=== PATIENT | male | born 1965 | race Caucasian/White ===

== ENCOUNTER 2018-08-17 13:19 | Outpatient (CLI) | payer BC, SELFPAY ==
--- NOTE | 2018-08-17 11:44 | DI.RAD_ITS ---
SYMPTOMS/DIAGNOSIS: SHORTNESS OF BREATH, R06.02 PA AND LATERAL CHEST: There are no prior comparison exams. The heart size is within normal limits. The aorta is normal in diameter. The lungs appear clear. No infiltrate, effusion or pulmonary edema is seen. IMPRESSION: Negative chest x-ray.
== END 2018-08-17 13:39 ==
PROVIDERS: PCP Nurse Practitioner; Visit Provider Nurse Practitioner
DX: R06.02 Shortness of breath (principal)
CPT/HCPCS: 71046

== ENCOUNTER 2018-09-03 12:28 | Outpatient (REF) | payer BC, SELFPAY ==
[2018-09-03 18:50] LABS: HCT 42.1 % (40.0-50.0); HGB 13.3 g/dL (13.5-17.5); Mean Corp. HGB Concentration 31.6 g/dL (32.0-36.0); Mean Corpuscular Hemoglobin 28.1 pg (27.0-33.0); Mean Corpuscular Volume 88.8 fL (80-95); Mean Platelet Volume 10.1 fL (8.0-11.0); Platelet Count 363 x1000/uL (130-400); RBC 4.74 m/cumm (4.50-6.00); RBC Distribution Width 14.6 % (11.8-14.1); White Blood Cell Count 7.31 k/cumm (4.4-10.8)
[2018-09-03 19:09] LABS: ALT 45 U/L (12-78); AST 27 U/L (15-37); Albumin 3.5 g/dL (3.4-5.0); Alkaline Phosphatase 77 U/L (46-116); Anion Gap 7.7 mmol/L (3-11); BUN 13 mg/dL (7-18); Bilirubin, Total 0.3 mg/dL (0.2-1.0); CO2 27.3 mmol/L (21.0-32.0); CREATININE 0.79 mg/dL (0.70-1.30); Calcium 8.8 mg/dL (8.5-10.1); Chloride 105 mmol/L (98-107); Glucose 101 mg/dL (70-100); Potassium 4.7 mmol/L (3.5-5.1); Sodium 140 mmol/L (136-145); TSH (W/Ref FT4) 2.18 uIU/mL (0.358-3.74); Total Protein 7.4 g/dL (6.4-8.2)
== END 2018-09-03 12:48 ==
LOC: NCHCN 12:28
PROVIDERS: PCP Nurse Practitioner; Visit Provider Nurse Practitioner
DX: R53.83 Other fatigue (principal)
CPT/HCPCS: 80053; 85027; 84443

== ENCOUNTER 2018-09-20 10:28 | Emergency (ER) | payer BC, SELFPAY ==
--- NOTE | 2018-09-20 11:00 | NUR.NOTE ---
at 0945 pt caught 3rd and 4th finger in a wiliam wile working outside finger past the distal going on the forth digit is missing and tip of third digit is crushed
[2018-09-20 11:02] VITALS: BP 124/85; PULSE 94; RESP 16; TEMP 36.6; O2SAT 96
--- NOTE | 2018-09-20 11:09 | ED.GENADUL_ITS ---
Discharge Plan Disposition Patient Disposition: [facility] Condition: Stable Discharge Details Chief Complaint: Laceration Clinical Impression: Finger fracture, right, Fingertip amputation, Finger laceration Primary Care Provider: Ave [facility] ED Provider: Sapphire Baltazar Home Meds and New Rx's Prescriptions: No Action No Known Home Meds RF: 0 Discharge Instructions Instructions: Finger Fracture (ED), Finger Laceration (ED) Additional Instructions: Go directly to [facility] emergency department for evaluation there by the emergency physician and orthopedic hand surgeon. Discharge Data Discharge Physician: Sapphire Baltazar Medical Decision Making 53-year-old male who presents with crush injury and laceration to right distal third fingertip and amputation to distal right fourth fingertip sustained when caught in a wiliam prior to arrival. Patient is right-handed. There is a crush injury and laceration extending through the nail of the distal right third finger extending up past the DIP joint on medial aspect. There is a distal amputation with nail avulsion of the right fourth fingertip distal to the DIP joint. Remainder fingers appear within normal limits. There are scattered abrasions and skin tears. He has grossly intact motor and sensory function of the third and fourth fingers. Last tetanus July 2008. Will give a Boostrix, dose of oxycodone, and send for right hand x-ray. There is no orthopedic consult available today. Will call [facility]. 1300 --x-rays note compound fracture of the terminal tuft of the third finger distal phalanx with soft tissue laceration as well as compound fracture/partial limitation of the terminal tuft of the fourth finger distal phalanx and fingertip soft tissue partial amputation. 2 g of Ancef ordered. Digital block performed on third and fourth finger prior to soaking and irrigation of fingers. 1315 --discussed with [facility] hand -accepts patient for transfer to the ED for evaluation and likely repair. Patient is otherwise hemodynamically stable and appropriate to have his drive himself to the [facility] ED. Patient and are agreeable with this plan and would rather drive there themselves. Wounds dressed with wet-to-dry dressings. Medical Records Medical records reviewed: Yes I reviewed the patient's medical records. Imaging Data Radiologic Study: Radiologist's impression: XR Right Hand Complete, 3 or more Views EXAM DATE/TIME: 09/20/2018 11:15 AM FINDINGS: Bones/joints: There is a comminuted, compound fracture of the terminal tuft of the third finger, distal phalanx. There is a compound fracture and partial amputation of the terminal tuft of the fourth finger distal phalanx. No dislocation. Soft tissues: There is laceration/crush injury of the soft tissues of the distal aspect of the third finger. There is partial amputation of the soft tissues of the tip of the fourth finger. IMPRESSION: 1. Compound fracture of the terminal tuft of the third finger distal phalanx with associated soft tissue laceration. 2. Compound fracture/partial amputation of the terminal tuft of the fourth finger distal phalanx and fingertip soft tissue partial amputation. HPI General Mode of arrival: ambulatory . Date/Time Provider Initiated Documentation: 09/20/18 11:08 . Limitations to Documentation: no limitations . Information obtained by: patient . HPI Narrative: Patient is a 53-year-old male who presents with crush injury and amputation to fingers after fingers caught in a wiliam prior to arrival. Patient states he works at a [employer] and states at around 10 AM this morning his right hand got caught in a wiliam and caused a crush injury to his distal right third fingertip and amputation to his distal right fourth fingertip. Unknown tetanus status. He has not taken anything for pain. Related Data Home Medications Medication Instructions Recorded Confirmed Unknown [No Known Home Meds] 09/20/18 09/20/18 Allergies Allergy/AdvReac Type Severity Reaction Status Date / Time No Known Allergies Allergy Unverified 09/20/18 11:04 General Stated Complaint: Laceration DAVIDE: 3 Review of Systems Review of Systems All systems reviewed & are unremarkable except as noted in HPI and below [facility] Medical History No significant past medical history (Acute) Surgical History No significant past surgical history (Acute) Social History Smoking/Tobacco Use Status: Never Alcohol Intake: never Drug use: Never Substance use type: does not use Do you feel safe at home: Yes Do you feel safe in your relationship?: Yes Exam Const General: cooperative, healthy appearing and no acute distress HENMT Head: normal to inspection Mouth: oral mucosae normal Eyes General: appearance normal, both eyes and all related structures Neck Neck: normal visual inspection Resp Effort & Inspection: normal respiratory effort and able to speak in complete sentences Cardio Rate: regular rate Skin General skin exam: no rashes or lesions noted Neuro General: alert, awake and oriented x3 Motor: muscle tone normal throughout and strength 5/5 throughout Sensory Exam: no sensory deficits noted Extrem Other: Crush injury/laceration noted to distal right third fingertip extending through the nailbed and medial aspect of distal finger. Amputation of tip of right fourth finger with nail avulsion distal to DIP joint. Scattered abrasions and skin tears. Psych Appearance: grossly normal Affect: normal affect Course Vital Signs Temperature 97.9 F 09/20/18 11:02 Pulse 94 H 09/20/18 11:02 Respiratory Rate 16 09/20/18 11:02 Blood Pressure 124/85 09/20/18 11:02 Pulse Oximetry 96 09/20/18 11:02 Temperature 97.9 F 09/20/18 11:02 Temperature Source Skin 09/20/18 11:02 Pulse 94 H 09/20/18 11:02 Respiratory Rate 16 09/20/18 11:02 Respiratory Effort 09/20/18 11:05 Blood Pressure 124/85 09/20/18 11:02 Blood Pressure Position Sitting 09/20/18 11:02 Pulse Oximetry 96 09/20/18 11:02 Oxygen Delivery Method Room Air 09/20/18 11:02 Oxygen Flow Rate 0 09/20/18 11:02 Pain Level 9 09/20/18 11:02
--- NOTE | 2018-09-20 11:14 | DI.RAD_ITS ---
SYMPTOM/DIAGNOSIS: CRUSH INJURY, AMPUTATION RIGHT HAND: Four views. Comparison is made with 05/29/10. There is a comminuted fracture involving the terminal tuft of the right middle finger with mild displacement of the fracture. There is an amputation of the soft tissues of the distal aspect of the right middle finger. There is a comminuted fracture involving the terminal tuft of the distal phalanx of the right finger finger. There is moderate displacement of the fracture fragments noted. There is an amputation of the soft tissues of the distal aspect of the right fourth finger. No radiopaque foreign bodies are seen. No other fracture or dislocation is seen. IMPRESSION: Comminuted displaced fractures involving the terminal edouard of the middle and ring fingers as described above.
[2018-09-20] MEDS: oxyCODONE 5 MG TAB PO ×2 (11:38→14:06)
--- NOTE | 2018-09-20 12:08 | DI.VRAD_ITS ---
EXAM: XR Right Hand Complete, 3 or more Views EXAM DATE/TIME: 09/20/2018 11:15 AM CLINICAL HISTORY: 53 years old, male; Signs and symptoms; Other: Crush injury 3rd fingertip; [id number] fingertip TECHNIQUE: Imaging protocol: XR Right hand 3 or more views. COMPARISON: No relevant prior studies available. FINDINGS: Bones/joints: There is a comminuted, compound fracture of the terminal tuft of the third finger, distal phalanx. There is a compound fracture and partial amputation of the terminal tuft of the fourth finger distal phalanx. No dislocation. Soft tissues: There is laceration/crush injury of the soft tissues of the distal aspect of the third finger. There is partial amputation of the soft tissues of the tip of the fourth finger. IMPRESSION: 1. Compound fracture of the terminal tuft of the third finger distal phalanx with associated soft tissue laceration. 2. Compound fracture/partial amputation of the terminal tuft of the fourth finger distal phalanx and fingertip soft tissue partial amputation. Dictated and Authenticated by: Theodore Arnold MD. Ordering:FITO Leary MD
[2018-09-20] MEDS: ceFAZolin 2,000 MG in Normal Saline 100 ML 200 MG IVPB (13:22)
--- NOTE | 2018-09-20 13:53 | NUR.NOTE ---
wounds flushed 1L HCG mixed with NS land proximal to injury also cleaned. bacitracin, and nonstick steral dressing applied to site.
[2018-09-20 14:02] VITALS: BP 130/95; PULSE 65; RESP 16; TEMP 37.2; O2SAT 96
== END 2018-09-20 14:09 | disposition short-term general hospital (02) ==
PROVIDERS: Emergency Provider Physician Assistant; PCP Nurse Practitioner
DX: S67.192A Crushing injury of right middle finger, initial encounter (principal); S67.194A Crushing injury of right ring finger, initial encounter; S62.634B Displaced fracture of distal phalanx of right ring finger, initial encounter for open fracture; S62.632B Displaced fracture of distal phalanx of right middle finger, initial encounter for open fracture; W23.0XXA Caught, crushed, jammed, or pinched between moving objects, initial encounter
CPT/HCPCS: 90471; 96365; 99284; 73130; J0690

== ENCOUNTER 2019-05-06 03:31 | Outpatient (CLI) | payer BC, SELFPAY ==
[2019-05-06] MEDS: Inhaler, Assist Device 1 EACH MC (08:50)
[2019-05-06] MEDS: Albuterol HFA 18 GM 200 PUFF INH IH (08:50)
--- NOTE | 2019-05-06 09:30 | PFT_ITS ---
PULMONARY FUNCTION TEST REPORT DATE OF SERVICE: May 06, 2019 REQUESTING PROVIDER: [facility] N.P. Spirometry shows mild obstructive airways disease with no significant bronchodilator response. Lung volumes show no evidence of restriction. Diffusion capacity elevated. Airways resistance normal. IMPRESSION: Mild obstructive airways disease with no significant bronchodilator response. This is associated with elevated airways resistance. This constellation of findings can be seen in asthma. Clinical correlation recommended. Magali
== END 2019-05-06 03:51 ==
PROVIDERS: PCP Nurse Practitioner; Visit Provider Nurse Practitioner
DX: J45.909 Unspecified asthma, uncomplicated (principal); R07.89 Other chest pain; R06.09 Other forms of dyspnea
CPT/HCPCS: 94060; 94150; 94726; 94729

== ENCOUNTER 2019-12-07 13:09 | Outpatient (REF) | payer BC, SELFPAY ==
[2019-12-07 16:31] LABS: ALT 27 U/L (16-63); AST 24 U/L (15-37); Albumin 3.7 g/dL (3.4-5.0); Alkaline Phosphatase 73 U/L (46-116); Anion Gap 8.1 mmol/L (3-11); BUN 11 mg/dL (7-18); Bilirubin, Total 0.6 mg/dL (0.2-1.0); CO2 27.9 mmol/L (21.0-32.0); CREATININE 0.84 mg/dL (0.70-1.30); Calcium 9.2 mg/dL (8.5-10.1); Calculated LDL 117 mg/dL (<100); Chloride 106 mmol/L (98-107); Cholesterol 177 mg/dL (<200); Glucose 99 mg/dL (74-106); HDL Cholesterol 35 mg/dL (40-60); Potassium 4.5 mmol/L (3.5-5.1); Sodium 142 mmol/L (136-145); Total Protein 7.4 g/dL (6.4-8.2); Triglyceride 125 mg/dL (<150)
== END 2019-12-07 13:29 ==
LOC: NCHCN 13:09
PROVIDERS: PCP Nurse Practitioner; Visit Provider Nurse Practitioner
DX: R73.03 Prediabetes (principal); Z68.35 Body mass index [BMI] 35.0-35.9, adult
CPT/HCPCS: 80053; 80061

== ENCOUNTER 2020-02-28 08:50 | Outpatient (REF) | payer BC, SELFPAY ==
[2020-02-28 18:58] LABS: HCT 40.9 % (40.0-50.0); HGB 13.5 g/dL (13.5-17.5); MCH 29.1 pg (27.0-33.0); MCV 88.1 fL (80-95); MPV 10.8 fL (8.0-11.0); Platelet Count 294 10^3/uL (130-400); RBC 4.64 10^6/uL (4.36-5.78); RDW 13.5 % (11.8-14.1); WBC 7.51 10^3/uL (4.4-10.8)
[2020-02-28 19:27] LABS: Hemoglobin A1C 5.5 % (<5.7)
[2020-02-28 19:47] LABS: Vitamin B12 299 pg/mL (193-986)
[2020-02-28 19:50] LABS: Vitamin D 25 Total 24.9 ng/ml (30-100)
== END 2020-02-28 09:10 ==
LOC: NCHCN 08:50
PROVIDERS: PCP Nurse Practitioner; Visit Provider Nurse Practitioner
DX: R53.83 Other fatigue (principal); R73.03 Prediabetes; R53.81 Other malaise
CPT/HCPCS: 82306; 85027; 82607; 83036; 84443

== ENCOUNTER 2020-12-11 11:37 | Outpatient (REF) | payer BC, SELFPAY ==
[2020-12-11 14:49] LABS: Hemoglobin A1C 5.9 % (<5.7)
[2020-12-11 14:57] LABS: ALT 23 U/L (16-63); AST 17 U/L (15-37); Albumin 3.5 g/dL (3.4-5.0); Alkaline Phosphatase 67 U/L (46-116); Anion Gap 10.4 mmol/L (3-11); BUN 14 mg/dL (7-18); Bilirubin, Total 0.6 mg/dL (0.2-1.0); CO2 26.6 mmol/L (21.0-32.0); CREATININE 0.7 mg/dL (0.70-1.30); Calcium 8.7 mg/dL (8.5-10.1); Calculated LDL 134 mg/dL (<100); Chloride 106 mmol/L (98-107); Cholesterol 201 mg/dL (<200); Glucose 91 mg/dL (74-106); HDL Cholesterol 39 mg/dL (40-60); Potassium 4.2 mmol/L (3.5-5.1); Sodium 143 mmol/L (136-145); Total Protein 7.2 g/dL (6.4-8.2); Triglyceride 143 mg/dL (<150)
[2020-12-11 22:20] LABS: PSA, Screening 0.8 ng/mL (0.0-3.5)
== END 2020-12-11 11:38 | disposition home or self-care (01) ==
LOC: NCHCN 11:37
PROVIDERS: PCP Nurse Practitioner; Visit Provider Nurse Practitioner
DX: Z13.220 Encounter for screening for lipoid disorders (principal); R03.0 Elevated blood-pressure reading, without diagnosis of hypertension; R73.03 Prediabetes
CPT/HCPCS: 80053; 80061; 84153; 83036

== ENCOUNTER 2021-11-20 16:17 | Outpatient (REF) | payer BC, SELFPAY ==
[2021-11-20 15:00] LABS: Hemoglobin A1C 5.8 % (<5.7)
[2021-11-20 15:07] LABS: Anion Gap 9.6 mmol/L (3-11); BUN 10 mg/dL (7-18); CO2 26.4 mmol/L (21.0-32.0); CREATININE 0.8 mg/dL (0.70-1.30); Calcium 8.4 mg/dL (8.5-10.1); Calculated LDL 132 mg/dL (<100); Chloride 105 mmol/L (98-107); Cholesterol 192 mg/dL (<200); Glucose 94 mg/dL (74-106); HDL Cholesterol 38 mg/dL (40-60); Potassium 4.3 mmol/L (3.5-5.1); Sodium 141 mmol/L (136-145); Triglyceride 111 mg/dL (<150); Vitamin B12 374 pg/mL (193-986)
== END 2021-11-20 16:18 | disposition home or self-care (01) ==
LOC: NCHCN 16:17
PROVIDERS: PCP Nurse Practitioner; Visit Provider Internal Medicine
DX: Z00.00 Encounter for general adult medical examination without abnormal findings (principal); R73.03 Prediabetes; R03.0 Elevated blood-pressure reading, without diagnosis of hypertension; F43.9 Reaction to severe stress, unspecified; E66.9 Obesity, unspecified; J45.20 Mild intermittent asthma, uncomplicated
CPT/HCPCS: 80048; 80061; 82607; 83036

== ENCOUNTER 2022-08-13 12:50 | Outpatient (REF) | payer BC, SELFPAY ==
[2022-08-13 15:06] LABS: Abs Immature Grans 0.02 10^3/uL (0.0-0.06); Absolute Basophil Count 0.02 10^3/uL (0.0-0.2); Absolute Eosinophil Count 0.12 10^3/uL (0.0-0.7); Absolute Lymphocyte Count 2.04 10^3/uL (1.2-3.4); Absolute Monocyte Count 0.38 10^3/uL (0.1-0.8); Absolute Neutrophil Count 4.97 10^3/uL (1.2-6.7); Basophils % 0.3; Eosinophils % 1.6; HCT 43.1 % (40.0-50.0); HGB 14.3 g/dL (13.5-17.5); Immature Grans % 0.3; MCH 28.8 pg (27.0-33.0); MCHC 33.2 % (32.0-36.0); MCV 87 fL (80-95); MPV 10.1 fL (8.0-11.0); Neutrophils % 65.8; Platelet Count 343 10^3/uL (130-400); RBC 4.96 10^6/uL (4.36-5.78); RDW 13.2 % (11.8-14.1); RDW-SD 42.2 fL; WBC 7.55 10^3/uL (4.4-10.8)
[2022-08-13 15:34] LABS: ALT 40 U/L (16-63); AST 29 U/L (15-37); Albumin 3.9 g/dL (3.4-5.0); Alkaline Phosphatase 73 U/L (46-116); Anion Gap 9.7 mmol/L (3-11); BUN 11 mg/dL (7-18); Bilirubin, Total 0.7 mg/dL (0.2-1.0); CO2 27.3 mmol/L (21.0-32.0); CREATININE 0.8 mg/dL (0.70-1.30); Chloride 105 mmol/L (98-107); Estimated GFR 103.22 (mL/min/1.73m2); Glucose 99 mg/dL (74-106); Potassium 4.3 mmol/L (3.5-5.1); Sodium 142 mmol/L (136-145); Total Protein 7.3 g/dL (6.4-8.2)
[2022-08-13 15:41] LABS: Hemoglobin A1C 5.9 % (<5.7)
[2022-08-14 18:19] LABS: PSA, Screening 0.7 ng/mL (<=3.5)
== END 2022-08-13 12:51 | disposition home or self-care (01) ==
LOC: NCHCN 12:50
PROVIDERS: PCP Nurse Practitioner; Visit Provider Internal Medicine
DX: I10 Essential (primary) hypertension (principal); R73.03 Prediabetes; L50.8 Other urticaria; M53.3 Sacrococcygeal disorders, not elsewhere classified; Z12.5 Encounter for screening for malignant neoplasm of prostate
CPT/HCPCS: 80053; 84153; 83036; 85025

== ENCOUNTER 2022-08-15 01:33 | Outpatient (CLI) | payer BC, SELFPAY ==
--- NOTE | 2022-08-15 | DI.RAD_ITS ---
Exam(s) XR COCCYX XR PELVIS AP EXAM: XR PELVIS AP and XR coccyx CLINICAL HISTORY: PAIN, R52. TECHNIQUE: 2D digital imaging was performed.Three images were obtained. COMPARISON: CR XR COCCYX from 08/15/2022 FINDINGS: BONES: No acute fracture is present. No bony destructive lesion is seen. JOINTS: No dislocation present. No joint space narrowing is present. Mild degenerative changes are se en in the lower lumbar spine. SOFT TISSUE: Normal. IMPRESSION: 1. Unremarkable radiographs of the pelvis and coccyx. 2. Mild degenerative changes in the lower lumbar spine. DATA REPOSITORY: RADIATION DOSE DELIVERED:
== END 2022-08-15 01:53 ==
PROVIDERS: PCP Nurse Practitioner; Visit Provider Internal Medicine
DX: M53.3 Sacrococcygeal disorders, not elsewhere classified (principal); M47.816 Spondylosis without myelopathy or radiculopathy, lumbar region
CPT/HCPCS: 72170; 72220

== ENCOUNTER 2022-09-09 10:03 | Outpatient (REF) | payer BC, SELFPAY ==
[2022-09-09 15:26] LABS: Anion Gap 8.6 mmol/L (3-11); BUN 9 mg/dL (7-18); CO2 27.4 mmol/L (21.0-32.0); CREATININE 0.8 mg/dL (0.70-1.30); Calcium 8.8 mg/dL (8.5-10.1); Chloride 104 mmol/L (98-107); Estimated GFR 103.22 (mL/min/1.73m2); Glucose 105 mg/dL (74-106); Potassium 4.2 mmol/L (3.5-5.1); Sodium 140 mmol/L (136-145)
== END 2022-09-09 10:04 | disposition home or self-care (01) ==
LOC: NCHCN 10:03
PROVIDERS: PCP Nurse Practitioner; Visit Provider Internal Medicine
DX: I10 Essential (primary) hypertension (principal); F41.8 Other specified anxiety disorders; G47.8 Other sleep disorders
CPT/HCPCS: 80048

== ENCOUNTER 2022-09-27 21:01 | Emergency (ER) | payer BC, SELFPAY ==
[2022-09-27 21:07] VITALS: BP 136/83; PULSE 73; RESP 18; TEMP 36.7; O2SAT 97
--- NOTE | 2022-09-27 21:30 | DI.RAD_ITS ---
Exam(s) XR RIBS RT PA CHEST 3V EXAM: XR RIBS RT PA CHEST 3V CLINICAL HISTORY: fall, mid-lower R lateral rib pain. TECHNIQUE: 2D digital imaging was performed. COMPARISON: CR XR CHEST 2V PA LATERAL from 08/17/2018 FINDINGS: Total five views: Right ribs-three views: On 1 image there is a nondisplaced fracture line in the posterolateral aspect of the 11th rib. Not evident on the other images. No other fractures identified. Chest-two views: Heart size normal mediastinum is not widened. No infiltrates nor pleural effusions. No pneumothorax. No lung contusion. IMPRESSION: Possible right 11th rib fracture. No lung findings. No pneumothorax. DATA REPOSITORY: RADIATION DOSE DELIVERED:
--- NOTE | 2022-09-27 21:37 | ED.GENADUL_ITS ---
Discharge Plan Disposition Patient Disposition: Home Condition: Fair Discharge Details Clinical Impression: Contusion of thoracic wall Primary Care Provider: Clarence Kay ED Provider: Soniya Razo Home Meds and New Rx's Prescriptions: No Action No Known Home Meds Discharge Instructions Instructions: Contusion in Adults (ED) Additional Instructions: Tylenol 650 mg every 4 hours and or ibuprofen 600 mg every 6 hours as needed for pain. Ice for the next 48 hours and then you may change to heat. Avoid lifting of any kind the next 7 to 10 days. Return to ED for severe difficulty breathing, fever of 100.4 or above, any other concerns. Medical Decision Making Extensive discussion with the patient and his regarding bruising versus rib fracture. Patient has no evidence of a fracture, pneumothorax, kidney or liver injury. He does not feel like he needs anything stronger than Tylenol 650 mg every 4 hours and/or ibuprofen 600 mg every 6 hours. We did discuss ice for the next 48 hours and then changing over to heat. HPI General Date/Time Provider Initiated Documentation: 09/27/22 21:37 . HPI Narrative: This 57-year-old male patient presents with a chief complaint of right posterior thorax pain after a fall yesterday. Patient states that he was walking down a ramp carrying some boxes when he tripped and fell. Landed on a 4 x 4 beam. He has been taking Tylenol and ibuprofen 400 mg as needed for pain. States he felt pretty well today and went to work. After he got out of work he went to the [employer] and started lifting things which really exacerbated the back pain. It hurts more when he takes of breath or coughs. It seems little bit better now. He has no chest pain or shortness of breath. There is no flank pain or hematuria. He has no abdominal pain. Related Data Home Medications Medication Instructions Recorded Confirmed Unknown [No Known Home Meds] 09/20/18 09/20/18 Allergies Allergy/AdvReac Type Severity Reaction Status Date / Time No Known Allergies Allergy Unverified 09/20/18 11:04 General Stated Complaint: Chest/Rib DAVIDE: 4 Review of Systems Constitutional Constitutional: Denies chills, Denies fever(s), Denies headache(s) and Denies weakness Eyes Eyes: Denies diplopia and Reports other (no redness) ENT Ears, Nose, Mouth, and Throat: Denies otalgia, Denies headache(s), Denies nasal congestion, Denies nasal discharge, Denies neck pain and Denies sore throat Cardiovascular Cardiovascular: Denies chest pain, Denies palpitations and Denies dyspnea Respiratory Respiratory: Denies cough and Denies dyspnea Gastrointestinal Gastrointestinal: Denies abdominal pain, Denies diarrhea, Denies nausea and Denies vomiting Genitourinary Genitourinary: Denies difficulty urinating and Denies dysuria Musculoskeletal Musculoskeletal: Denies myalgias, Denies muscle weakness, Denies neck pain, Denies numbness and Reports other (edema) Integumentary/Breasts Skin/Breast: Denies change in pigmentation and Denies rash Neurologic Neurologic: Denies headache(s), Denies numbness and Denies weakness Endocrine Endocrine: Denies palpitations PFSH All Active Problems Contusion of thoracic wall (Acute) Medical History No significant past medical history Surgical History No significant past surgical history Social History Smoking/Tobacco Use Status: Never Smoking risk assessment performed?: Yes Alcohol Intake: never Drug use: Never Substance use type: does not use Do you feel safe at home: Yes Do you feel safe in your relationship?: Yes Exam Const General: no acute distress, well developed, well groomed and not in acute distress Nutritional Appearance: well nourished Orientation: alert and oriented x3 HENMT Head: normocephalic and atraumatic Ears: external ears normal Mouth: oropharynx normal and moist mucous membranes Throat: posterior oropharynx normal Eyes Conjunctivae: conjunctivae normal Neck Neck: full ROM and supple Chest Chest: normal inspection of the chest Resp Effort & Inspection: normal respiratory effort Auscultation: clear to auscultation bilaterally Cardio Rate: regular rate Rhythm: regular rhythm Heart Sounds: no murmurs and no rubs GI Inspection: normal to inspection Palpation: soft, nontender and other (non distended) Auscultation: normal bowel sounds Back/Spine/Pelvis Back: no CVA tenderness and back tenderness (Right posterior lower thorax; no crepitus or step off) Skin General skin exam: no rashes or lesions noted and other (pink, warm, dry) Neuro General: patient alert, patient awake and patient oriented x3 Speech: speech normal Motor: other (PAZ) Sensory Exam: no sensory deficits noted Extrem General: normal to inspection, full ROM and pedal edema present Psych Mental Status: mental status grossly normal Speech and Movement: speech and movement normal Affect: normal affect Course Vital Signs Vital signs: Vital Signs Temperature 36.7 C 09/27/22 21:07 Pulse 73 09/27/22 21:07 Respiratory Rate 18 09/27/22 21:07 Blood Pressure 136/83 09/27/22 21:07 Pulse Oximetry 97 09/27/22 21:07 Temperature 36.7 C 09/27/22 21:07 Pulse 73 09/27/22 21:07 Respiratory Rate 18 09/27/22 21:07 Respiratory Effort Normal 09/27/22 21:21 Respiratory Depth Normal 09/27/22 21:21 Respiratory Pattern Normal 09/27/22 21:21 Blood Pressure 136/83 09/27/22 21:07 Blood Pressure Position Sitting 09/27/22 21:07 Pulse Oximetry 97 09/27/22 21:07 Oxygen Delivery Method Room Air 09/27/22 21:07 Oxygen Flow Rate 0 09/27/22 21:07 Pain Level 8 09/27/22 21:21
--- NOTE | 2022-09-27 22:19 | DI.VRAD_ITS ---
PROCEDURE INFORMATION: Exam: XR Right Ribs with PA Chest Exam date and time: 09/27/2022 9:54 PM Age: 57 years old Clinical indication: Injury or trauma; Rib area; Blunt trauma (contusions or hematomas); Injury details: Fall, mid-lower R lateral rib pain TECHNIQUE: Imaging protocol: Radiologic exam of the right ribs with PA chest. Views: 3 views COMPARISON: CR XR CHEST 2V PA LATERAL 08/17/2018 11:44 AM FINDINGS: Lungs: No consolidation. No significant atelectasis. No vascular congestion. Pleural spaces: Unremarkable. No pleural effusion. No pneumothorax. Heart/Mediastinum: Unremarkable. No cardiomegaly. Bones/joints: No definite fractures are observed in the right ribs. A lucency overlies the posterior 11th rib on one view, likely an overlying bowel shadow. Soft tissues: There is no abnormal chest wall gas. IMPRESSION: 1. No acute rib fracture observed. 2. No pneumothorax. Dictated and Authenticated by: Kevin You MD. Ordering:JAKI Byrnes MD
[2022-09-27 22:50] VITALS: RESP 20; TEMP 36.8; O2SAT 97
== END 2022-09-27 22:51 | disposition home or self-care (01) ==
PROVIDERS: Emergency Provider Emergency Medicine; PCP Internal Medicine
DX: S20.20XA Contusion of thorax, unspecified, initial encounter (principal); W01.0XXA Fall on same level from slipping, tripping and stumbling without subsequent striking against object, initial encounter; Y93.01 Activity, walking, marching and hiking
CPT/HCPCS: 99283; 71046; 71100

== ENCOUNTER 2023-05-26 16:19 | Outpatient (REF) | payer BC, SELFPAY ==
[2023-05-26 21:37] LABS: Anion Gap 10.9 mmol/L (3-11); BUN 9 mg/dL (7-18); CO2 28.1 mmol/L (21.0-32.0); CREATININE 0.8 mg/dL (0.70-1.30); Calcium 8.8 mg/dL (8.5-10.1); Chloride 103 mmol/L (98-107); Estimated GFR 103.22 (mL/min/1.73m2); Glucose 105 mg/dL (74-106); Potassium 4.2 mmol/L (3.5-5.1); Sodium 142 mmol/L (136-145); Vitamin B12 320 pg/mL (193-986)
== END 2023-05-26 16:20 | disposition home or self-care (01) ==
LOC: NCHCN 16:19
PROVIDERS: PCP Internal Medicine; Visit Provider Internal Medicine
DX: I10 Essential (primary) hypertension (principal); R63.8 Other symptoms and signs concerning food and fluid intake
CPT/HCPCS: 80048; 82607

== ENCOUNTER 2023-12-30 18:29 | Outpatient (REF) | payer BC, SELFPAY ==
[2023-12-30 16:23] LABS: HCT 38.1 % (40.0-50.0); HGB 12.9 g/dL (13.5-17.5); MCH 29.6 pg (27.0-33.0); MCHC 33.9 % (32.0-36.0); MCV 87 fL (80-95); MPV 10.3 fL (8.0-11.0); Platelet Count 293 10^3/uL (130-400); RBC 4.36 10^6/uL (4.36-5.78); RDW 13.4 % (11.8-14.1); RDW-SD 42.8 fL; WBC 7.46 10^3/uL (4.4-10.8)
[2023-12-30 16:44] LABS: Iron 80 ug/dL (65-175); Total Iron Binding Capacity 315 ug/dL (250-450); Transferrin Sat 25 % (20-55)
[2023-12-30 17:16] LABS: Hemoglobin A1C 6.1 % (<5.7)
[2023-12-30 17:26] LABS: ALT 23 U/L (16-63); AST 15 U/L (15-37); Albumin 3.4 g/dL (3.4-5.0); Alkaline Phosphatase 66 U/L (46-116); Anion Gap 8.9 mmol/L (3-11); BUN 10 mg/dL (7-18); Bilirubin, Total 0.54 mg/dL (0.2-1.0); CO2 27.1 mmol/L (21.0-32.0); CREATININE 0.7 mg/dL (0.70-1.30); Calcium 8.5 mg/dL (8.5-10.1); Calculated LDL 109 mg/dL (<100); Chloride 108 mmol/L (98-107); Cholesterol 178 mg/dL (<200); Ferritin 88 ng/mL (26-388); Glucose 97 mg/dL (74-106); HDL Cholesterol 38 mg/dL (40-60); Potassium 3.9 mmol/L (3.5-5.1); Sodium 144 mmol/L (136-145); TSH (W/Ref FT4) 2.15 uIU/mL (0.36-3.74); Total Protein 6.9 g/dL (6.4-8.2); Triglyceride 155 mg/dL (<150); Vitamin B12 320 pg/mL (193-986)
[2023-12-31 09:18] LABS: PSA, Screening 0.7 ng/mL (<=3.5)
== END 2023-12-30 18:30 | disposition home or self-care (01) ==
LOC: NCHCN 18:29
PROVIDERS: PCP Internal Medicine; Visit Provider Nurse Practitioner Family
DX: Z00.00 Encounter for general adult medical examination without abnormal findings (principal); Z12.5 Encounter for screening for malignant neoplasm of prostate; E66.9 Obesity, unspecified
CPT/HCPCS: 80053; 80061; 84153; 85027; 82607; 82728; 83036; 83540; 83550; 84443

== ENCOUNTER 2025-02-09 15:11 | Outpatient (REF) | payer BC, SELFPAY ==
[2025-02-09 14:24] LABS: HCT 39.7 % (40.0-50.0); HGB 12.9 g/dL (13.5-17.5); MCH 28.5 pg (27.0-33.0); MCHC 32.5 % (32.0-36.0); MCV 88 fL (80-95); MPV 10.2 fL (8.0-11.0); Platelet Count 288 10^3/uL (130-400); RBC 4.53 10^6/uL (4.36-5.78); RDW 13.5 % (11.8-14.1); RDW-SD 43.8 fL; WBC 6.53 10^3/uL (4.4-10.8)
[2025-02-09 14:52] LABS: COMMENT (LAB VIEW ONLY) 201.87 mg/dL; Microalb ug/mg Crea 10.9 ug/mg Cr
[2025-02-09 14:53] LABS: ALT 21 U/L (16-63); AST 20 U/L (15-37); Albumin 3.9 g/dL (3.4-5.0); Alkaline Phosphatase 79 U/L (46-116); Anion Gap 7.0 mmol/L (3-11); BUN 10 mg/dL (7-18); Bilirubin, Total 0.4 mg/dL (0.2-1.0); CO2 30.0 mmol/L (21.0-32.0); Calcium 9.2 mg/dL (8.5-10.1); Chloride 105 mmol/L (98-107); Estimated GFR 106.14 (mL/min/1.73m2); Glucose 99 mg/dL (74-106); Potassium 4.3 mmol/L (3.5-5.1); Sodium 142 mmol/L (136-145); Total Protein 7.4 g/dL (6.4-8.2)
[2025-02-09 14:55] LABS: Hemoglobin A1C 5.8 % (<5.7)
[2025-02-09 22:24] LABS: PSA, Screening 0.6 ng/mL (<=3.5)
== END 2025-02-09 15:12 | disposition home or self-care (01) ==
LOC: NCHCN 15:11
PROVIDERS: PCP Nurse Practitioner Family; Visit Provider Nurse Practitioner Family
DX: R73.03 Prediabetes (principal); Z00.00 Encounter for general adult medical examination without abnormal findings; Z12.5 Encounter for screening for malignant neoplasm of prostate; I10 Essential (primary) hypertension
CPT/HCPCS: 80053; 84153; 85027; 82043; 82570; 83036